=== PATIENT | female | born 1990 | race Caucasian/White ===

== ENCOUNTER 2025-01-16 14:42 | Emergency (ER) | payer OTHER ==
[~2025-01-16] VITALS: Ht 162.6 cm; Wt 65.8 kg
[2025-01-16 14:50] VITALS: BP 127/77
[2025-01-16 16:22] LABS: PLATELET COUNT (AUTO) 248 K/uL (179-408); RED BLOOD CELL COUNT(AUTO) 4.87 MIL/uL (3.63-4.92); RED CELL DISTRIBUTION WIDTH 14.1 % (12.3-17.7); WHITE BLOOD COUNT (AUTO) 12.2 K/uL (3.8-11.8)
[2025-01-16 16:31] LABS: CREATININE 0.4 mg/dL (0.6-1.3); SODIUM SERUM 138 mmol/L (136-145); UREA NITROGEN, BLOOD 9 mg/dL (7-18)
[2025-01-16 16:59] LABS: PREGNANCY TEST SERUM QUAN 237828 miul/L (0-6)
[2025-01-16 17:13] VITALS: BP 119/66; O2SAT 100
== END 2025-01-16 17:13 | disposition home or self-care (01) ==
LOC: ER 14:42
DX: O26.892 Other specified pregnancy related conditions, second trimester (principal); R10.32 Left lower quadrant pain; Z3A.14 14 weeks gestation of pregnancy
CPT/HCPCS: 36415; 76856; 83735; 85025; A4606; A4663